=== PATIENT | male | born 1945 ===

== ENCOUNTER → 2017-06-25 | Outpatient (CLI) | payer MEDICARE, BC ==
--- NOTE | 2017-06-25 14:45 | Diagnostic Imaging Report ---
Indication: Back pain Technique: MRI examination of the Lumbar spine was performed in a 1.5 Sherri magnet. Sequences obtained include sagittal and axial T1 and T2 fast spin echo, and sagittal STIR. No IV gadolinium was given Comparison: none Findings: The visualized part of the distal spinal cord appears normal. The tip of the conus medullaris is seen at T12 and is unremarkable. At T12-L1: Mild narrowing of intervertebral discs with disc desiccation demonstrated. There is no disc herniation or canal stenosis. Mild hypertrophy of the facets demonstrated at this level. There is no central or foraminal stenosis. L1-2: The disc appears relatively normal. There is mild to moderate facet hypertrophy. No canal or foraminal stenosis demonstrated. L2-3: Mild desiccation and narrowing of the disc demonstrated. Concentric disc bulge is present associated with a moderate endplate spur formation. Moderate facet hypertrophy noted. A mild narrowing of the neural foramina noted bilaterally. L3-4: Moderate to severe disc disease demonstrated at this level with desiccation and narrowing of the vertebral disc, moderate endplate osteophyte formation and heterogeneous endplate signal abnormalities primarily low signal on all sequences indicative of sclerosis. Wide based circumferential disc bulge is present. Moderate to severe hypertrophy of the facets demonstrated. Combination of factors results in mild central stenosis with a residual thecal sac diameter that is approximately 8 mm and narrowing of the lateral recess primarily on the basis of facet arthropathy and ligamentum flavum redundancy. There is mild narrowing of the right neural foramen. There is moderate narrowing of the left neural foramen with effacement of most of the perineural fat surrounding the exiting left L3 nerve root. The degenerative disc disease, endplate and facet osteophyte formation appears worse on the left side at this level in association with a slight rightward convexity. L4-5: Mild desiccation and narrowing of intervertebral disc demonstrated. A wide based circumferential disc bulge with endplate spur formation. Moderate facet arthropathy demonstrated. Degenerative endplate and facet spurs are worse on the right side at this level associated with slight convexity to the left. Consequently, right neural foraminal stenosis at this level is moderate to severe with complete effacement of perineural fat surrounding the exiting right L4 nerve root, which is also decompressed. There is also narrowing of the lateral recess which appears worse on the right compared to the left. Mild central stenosis noted. L5-S1: Mild desiccation and narrowing of the disc demonstrated. Wide based circumferential disc bulge demonstrated. In addition there is a small right paracentral disc protrusion visualized compression of the traversing right S1 nerve root is noted. There is also evidence of moderate bilateral neural foraminal stenosis due to moderate facet arthropathy. There is no central canal stenosis. Partially visualized multiple cortical and mostly parapelvic cysts are present within the kidneys. Impression: L3-4 moderate to severe disc disease/endplate osteophyte formation and moderate facet arthropathy (left worse than right). Mild central spinal stenosis and lateral recess stenosis. Moderate left foraminal stenosis and mild right foraminal stenosis. L4-5: Mild disc disease. Moderate facet arthropathy. Moderate to severe right neural foraminal stenosis. Moderate right lateral recess stenosis. Mild central stenosis. L5-S1: Small right paracentral disc protrusion with compression of the right traversing S1 nerve root.. Associated mild disc disease/endplate osteophytes. Moderate facet arthropathy with moderate bilateral neural foraminal stenosis. Widely patent central canal. Partially imaged, multiple parapelvic and cortical renal cysts.
== END | disposition home or self-care (01) ==
LOC: MRI 12:39
DX: M51.36 Other intervertebral disc degeneration, lumbar region (principal); M48.06 Spinal stenosis, lumbar region; M51.37 Other intervertebral disc degeneration, lumbosacral region; N28.1 Cyst of kidney, acquired
CPT/HCPCS: 72148